=== PATIENT | female | born 1995 | race Caucasian/White ===

== ENCOUNTER 2017-09-18 14:08 | Emergency (ER) | payer OTHER ==
[2017-09-18] MEDS: TETRACAINE 0.5% OPHTH SOLUTION 4ML BOTTLE. OD (14:45)
== END 2017-09-18 14:51 | disposition home or self-care (01) ==
LOC: ER 14:08
DX: T49.0X1A Poisoning by local antifungal, anti-infective and anti-inflammatory drugs, accidental (unintentional), initial encounter (principal); T26.61XA Corrosion of cornea and conjunctival sac, right eye, initial encounter; Y93.89 Activity, other specified; Y99.8 Other external cause status; Y92.89 Other specified places as the place of occurrence of the external cause
CPT/HCPCS: 99283